=== PATIENT | female | born 1980 | race Caucasian/White ===

== ENCOUNTER 2016-09-01 17:45 | Emergency (ER) | payer OTHER ==
[2016-09-01 17:45] VITALS: BP 136/81
[2016-09-01] MEDS ORDERED: diphenhydrAMINE HCL 50 MG/ML VIAL IV ONE (20:57)
[2016-09-01] MEDS ORDERED: FAMOTIDINE 10 MG/ML VIAL IV ONE (20:57)
[2016-09-01] MEDS ORDERED: ONDANSETRON HCL/PF 2 MG/ML VIAL IV ONE (20:57)
[2016-09-01] MEDS ORDERED: KETOROLAC TROMETHAMINE 30 MG/ML VIAL IV ONE (20:59)
--- NOTE | 2016-09-01 21:26 | ERNOTE ---
Headache ER HPI - General Time Seen by Provider: 09/01/16 21:00 - Immun/Allergies/Home Medications Immunizations: IMMUNIZATION HX Immunizations Up to Date Yes History of Influenza Vaccine No Hx Pneumococcal Vaccination No Allergies/Adverse Reactions: Allergies codeine [Codeine] Allergy (Verified 03/17/16 23:10) Hives cyclobenzaprine HCl [From Flexeril] Allergy (Verified 09/01/16 17:58) Hives latex Allergy (Verified 03/17/16 23:10) Hives tramadol Allergy (Verified 03/17/16 23:10) Hives acetaminophen [From Darvocet-N 100] Adverse Reaction (Verified 03/17/16 23:10) Nausea prochlorperazine edisylate [From Compazine] Adverse Reaction (Verified 03/17/16 23:10) prochlorperazine maleate [From Compazine] Adverse Reaction (Verified 03/17/16 23 :10) propoxyphene napsylate [From Darvocet-N 100] Adverse Reaction (Verified 23:10) Nausea Home Medications: HOME MEDICATIONS Aspirin [Aspirin Chewable] 81 mg PO DAILY 12/24/14 [Last Taken 01/23/15] ALPRAZolam [Xanax] 1 mg PO TID 10/21/15 [Last Taken Unknown] Albuterol Sulfate [Albuterol Sulfate 2.5 MG/0.5ML] 1 vial IH Q4H PRN 03/17/16 [ Last Taken Unknown] Albuterol Sulfate [Ventolin HFA] 2 puff IH Q4H PRN 03/17/16 [Last Taken Unknown] Budesonide [Pulmicort Flexhaler] 180 mcg IH 03/17/16 [Last Taken Unknown] Sertraline HCl [Zoloft] 100 mg PO DAILY 09/01/16 [Last Taken Unknown] - Patient's Past Medical History Patient History - Medical: Anxiety, Depression Patient History - Cancer: No Hx of Cancer Patient History - Surgical Procedures: Appendectomy, Cholecystectomy, Hysterectomy, T & A LMP (females 10-50): other - Social History Living Situations: significant other Smoking Status: Current every day smoker Alcohol Use: occasionally Drug Use: none ED Progress - Date and Time Seen: Date and Time: 09/01/16 21:23 Patient requested AMA Form from RN and walked out of the room. Patient at the moment with no distress and with a full mental status with no gross neurologic defits. Patient is welcome to return if she changes her mind. - Vital Signs Patient's Vital Signs:: I have reviewed the patient's vital signs. Vital Signs: Vital Signs 09/01/16 17:51 Temperature 36.3 C L Pulse Rate 96 Respiratory 14 Rate Blood Pressure 136/81 O2 Sat by Pulse 98 Oximetry - Progress/Reassessment Chief Complaint: Headache - Transfer of Care Expected Disposition: Discharge Departure Clinical Impression: Migraine Qualifiers: Migraine type: unspecified Status migrainosus presence: without status migrainosus Intractability: not intractable Qualified Code(s): G43.909 - Migraine, unspecified, not intractable, without status migrainosus - Departure Disposition: Against medical advice Instructions: Migraine Headache, [id number] Referrals: Brigida Leon [facility] [Primary Care Provider] -
== END 2016-09-01 21:25 | disposition left against medical advice (07) ==
LOC: ER 17:45
DX: Z53.21 Procedure and treatment not carried out due to patient leaving prior to being seen by health care provider (principal)